=== PATIENT | female | born 1960 | race Caucasian/White ===

== ENCOUNTER 2016-08-30 06:21 | Inpatient (IN) ==
--- NOTE | 2016-08-29 16:13 | Discharge Summary ---
<Ann Weller - Last Filed: 08/29/16 16:12> Date of Encounter: 08/29/16 - Discharge Diagnosis (1) Rotator cuff tear arthropathy of right shoulder Priority: Primary Status: Acute (2) Hypothyroidism Priority: Secondary Status: Chronic Qualifiers: Hypothyroidism type: unspecified Qualified Code(s): E03.9 - Hypothyroidism , unspecified (3) Asthma Priority: Secondary Status: Chronic Qualifiers: Asthma severity: unspecified severity Asthma complication type: uncomplicated Qualified Code(s): J45.909 - Unspecified asthma, uncomplicated - Discharge Medications Home Medications: OxyCODONE Immed Rel [Roxicodone 5 MG] 5 - 10 mg PO Q6HR PRN #40 tablet 08/29/16 [Rx] Albuterol Sulfate [Albuterol Inhaler] 2 puff IH Q4HR PRN 08/30/16 [History] Docusate [Colace] 100 mg PO DAILY PRN 08/30/16 [History] Ezetimibe [Zetia] 10 mg PO DAILY 08/30/16 [History] Gabapentin [Neurontin] 400 mg PO QID 08/30/16 [History] Gluc/Donald-MSM#1/C/Daniel/Lawrence/Bor [Osteo Bi-Flex Caplet] 1 each PO DAILY 08/30/16 [ History] Ibuprofen [Motrin] 400 mg PO Q8HR PRN 08/30/16 [History] Levothyroxine [Synthroid] 175 mcg PO 0630 08/30/16 [History] Tramadol HCl [Ultram] 50 mg PO TID PRN 08/30/16 [History] guaiFENesin [Guaifenesin] 400 mg PO Q4H PRN 08/30/16 [History] Allergies/Adverse Reactions: Allergies Penicillins [PCN] Adverse Reaction (Verified 08/30/16 07:11) Rash Primary care physician: Camille Soto CNP - Patient Status Disposition: Home, Self-Care Condition: Good - Discharge Instructions Follow Up With: Ann Weller, BRISEIDA [Physician [employer]] - 09/07/16 9:15 am Camille Soto CNP [Primary Care Provider] - Additional Instructions: Discharge Instructions: Total Shoulder Please call [facility] ([phone]), your Primary Care Physician, or report to the Emergency Room if you have any of the following symptoms: Nausea, vomiting, fever greater that 101.5, swelling, chest pain, shortness of breath, increased pain/redness/drainage/odor for your incision site, numbness/ tingling, or any other concerning symptoms. ACTIVITY: Always keep your arm in the sling. Do not raise your arm away from your body. Do not use your arm to help with getting in or out of bed. No weight bearing permitted. Only perform those exercises given to you by your therapist. MEDICATIONS: Upon discharge resume your home medications. Take all the medications as prescribed. Take a stool softener if taking narcotic pain medications. Stool softeners are only effective if you drink enough fluids. Drink 6-8 glass of water or fluids a day, unless this is not allowed for another health problem. Despite using stool softeners, if you haven't had a bowel movement in 3 days, please switch to a gentle laxative. Gentle laxatives are sold over the counter. You should have a bowel movement within 24 hours, if not call the office. You will be discharged from the hospital with a prescription for pain medication. You are encouraged to decrease the use of narcotic pain medication as tolerated. Should you require a refill, please call the office. [facility] prescribes narcotic pain medication for only 4-6 weeks after surgery. If you require pain medication beyond this time period, you may be referred to your Primary Care Physician or to the Pain Clinic for further evaluation. Plan ahead for refills on pain medication as many narcotics either need to be picked up at the office or mailed. It is best to call 48-72 hours in advance of needing a prescription refill so you don't run out of medication. To help control the post-operative pain, you may take NSAIDs (Aleve,Advil, Motrin, Ibuprofen, Naprosyn) or Tylenol as prescribed on the bottle in addition to the pain medication. WOUND CARE: Leave the dressing on for 7-10 days. You may change the dressing if it becomes saturated greater than 50%. Do not get the dressing wet at anytime. Wash your hands with antibacterial soap, rinse and dry prior to any wound care. If you have joseph the visiting nurse or rehab facility can remove the stapes 10-14 days after surgery and place steri-strips across the wound. Leave the steri-strips in place until they fall off on their own. You may let water from the shower run on top of the steri-strips. If you do not have a visiting nurse or rehab facility, you will need to return to the office at 10-14 days for the joseph to be removed. If you have itching or redness around the dressing call the office. FOLLOW-UP: Please follow up with your surgeon in the orthopedic clinic, as scheduled - Hospital Course Hospital course: Ms. Rossi is a 56 year old female - Time Spent with Patient Total time spent providing and/or coordinating discharge services: <Raman Otoole - Last Filed: 08/31/16 12:53> Date of Encounter: 08/31/16 Time of Encounter: 12:52 - Discharge Diagnosis (1) Tobacco abuse Priority: Secondary Status: Chronic (2) Rotator cuff tear arthropathy of right shoulder Priority: Primary Status: Acute (3) Hypothyroidism Priority: Secondary Status: Chronic Qualifiers: Hypothyroidism type: unspecified Qualified Code(s): E03.9 - Hypothyroidism , unspecified (4) Asthma Priority: Secondary Status: Chronic Qualifiers: Asthma severity: unspecified severity Asthma complication type: uncomplicated Qualified Code(s): J45.909 - Unspecified asthma, uncomplicated Primary care physician: Camille Soto CNP - Patient Status Functional capacity at discharge: independent ambulation Overall status at discharge: patient is progressing back to baseline - Hospital Course Hospital course: Ms. Rossi is a 56 year old female The patient had an uneventful postoperative course. They received antibiotics and physical therapy and were discharged in stable condition. There will follow -up in the office in 2 weeks. - Time Spent with Patient Total time spent providing and/or coordinating discharge services:
--- NOTE | 2016-08-30 06:25 | History & Physical Report ---
Date of Encounter: 08/30/16 Time of Encounter: 06:25 24 Hour HP Update - Instructions Instructions: If the History and Physical is less than 30 days old and was completed prior to A.M. admission and or procedure and has NOT been updated on calendar day of procedure please complete this update prior to performing procedure. - Update Patient reports changes in Medical Condition: No Changes in examination, assessment, or condition: No Changes in Medication: No Preop tests/diagnostics Reviewed: Yes Surgery Remains Indicated: Yes Consent for Planned Operative Procedure(s) Verified: Yes - Pre-Operative Checklist Preoperative Checklist Indicated: No Prophylactic Antibiotic Ordered: Yes Is VTE Prophylaxis Indicated?: Yes
[2016-08-30] MEDS ORDERED: Clindamycin 900 MG/50 ML 900 MG/50 ML IV.SOLN IVPB ONE ×2 (06:42→06:57)
[2016-08-30] MEDS ORDERED: Ringers Solution, Lactated 1,000 ML IVC SCH ×2 (06:45→09:50)
[2016-08-30] MEDS ORDERED: Albuterol 2.5 MG/3 ML NEBULIZER IH ONE (06:57)
--- NOTE | 2016-08-30 07:04 | Anesthesia Evaluation PreOp ---
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 Other Medical History: Thyroid (Hypothyroid) Anesthesia History: Past Anesthesia (hysteroscopy, D&C, Right shoulder) : No Alcohol Use: none Drug use: none Medications and Allergies OxyCODONE Immed Rel [Roxicodone 5 MG] 5 - 10 mg PO Q6HR PRN #40 tablet 08/29/16 [Rx] Allergies Penicillins [PCN] Adverse Reaction (Verified 08/30/16 07:11) Rash - Meds/Allergy Pre-op Review Medications Reviewed: Yes Allergies Reviewed: Yes Beta Blockers on Current Med List: No Anesthesia Results - Labs Hg 9.4 Plt 376 INR 1.07 BUN 14 Cr 0.7 - Imaging EKG: image reviewed (SR) Anesthesia Exam O2 Sat Height 1.63 m Height 1.63 m Weight 71.214 kg Weight 71.214 kg O2 Sat by Pulse Oximetry 96 O2 Sat by Pulse Oximetry 96 Vital Signs Temp Pulse Resp BP Pulse Ox 98.3 F 76 18 131/84 96 08/30/16 06:58 08/30/16 06:58 08/30/16 06:58 08/30/16 06:58 08/30/16 06:58 Height: 5'4'' Weight: 157# NPO (# of Hours): > 8 hrs Pain Scale: 0 Pain Scale Used: Numeric (1 - 10) - HEENT Pupil (Motor): Pupils equal, EOMI Mallampati: II Teeth: Edentulous Denture Type: Upper: Complete, Lower: Complete Oral Opening: Greater than 3 - 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
[2016-08-30] MEDS ORDERED: Lidocaine -MPF 1% 2 ML VIAL ONE (07:10)
[2016-08-30] MEDS ORDERED: *HR* Midazolam HCl 2 MG/2 ML VIAL ONE (07:23)
[2016-08-30] MEDS ORDERED: *HR* Propofol 200 MG/20 ML VIAL IVP ONE (07:23)
[2016-08-30] MEDS ORDERED: Dexamethasone 4 MG/ML VIAL ONE (07:24)
[2016-08-30] MEDS ORDERED: Ondansetron 4 MG/2 ML VIAL ONE (07:24)
[2016-08-30] MEDS ORDERED: Bupivacaine-MPF 0.25% 10 ML VIAL ONE (07:25)
[2016-08-30] MEDS ORDERED: Lidocaine -MPF 2% 2 ML VIAL ONE (07:26)
[2016-08-30] MEDS ORDERED: ROPIVACAINE HCL/PF 0.5% 30 ML VIAL ONE (07:27)
[2016-08-30] MEDS ORDERED: Lidocaine/EPI 1:200k 2% PF 10 ML VIAL ONE (07:33)
[2016-08-30] MEDS ORDERED: Ondansetron 4 MG/2 ML VIAL IVP ONE (08:04)
[2016-08-30] MEDS ORDERED: *HR* Labetalol 100 MG/20 ML MDV IVP PRN (08:04)
[2016-08-30] MEDS ORDERED: *HR* HYDROmorphone (PF) 1 MG/ML SYRINGE IVP PRN ×2 (08:04→09:50)
[2016-08-30] MEDS ORDERED: *HR* Phenylephrine 10 MG/ML VIAL ONE (08:08)
--- NOTE | 2016-08-30 08:11 | Anesthesia Procedures ---
Date of Encounter: 08/30/16 Time of Encounter: 07:38 Procedures: Anesthesia - Nerve Block Procedure Date: 08/30/16 Time: 07:38 Allergies/Adv Reactions: pcn Surgical Procedure: right Checklist: Correct Patient Identifier, Correct procedure, History checked Correct side: Right Blood Thinner: No Monitor Applied: EKG, BP, Pulse Oximetry Supplemental Oxygen via Nasal Cannula (L/min): 2 Sedation: Versed (mg): 2 Indication: Post Op Analgesia Block Type: Interscalene, Supraclavicular (and SCP ) Catheter placed: No Sterile Technique: Yes Ultrasound used: Yes Anatomy identified: Yes Visual spread of Local: Yes Neuro Stimulation: No Blood on Needle Aspiration: No Smooth Injection of Local: Yes Pain with Injection of Local: No Prep: Chlorhexadine Needle: 22 x 50 mm Stimuplex Local: Ropivacaine (30ml 0.5%), Other (20ml 0.25% bup with 5ml lido with 1:200k epi) Volume (cc): 55 Number of Attempts: 1 Complications: None/effective block Vitals: vss, 10ml for IS, 30 for supraclavical, 7 for T2 block, 8 for SCP. block per request of surgeon
[2016-08-30] MEDS ORDERED: EPHEDrine 50 MG/ML VIAL ONE (08:27)
--- NOTE | 2016-08-30 08:39 | Orthopedic Operative Note ---
Date of procedure: 08/30/16 Pre-op diagnosis: Right shoulder cuff tear arthropathy Post-op diagnosis: same Procedure: Procedure: Right Total Shoulder Replacment Reverse, biceps tenodesis Estimated blood loss: 100 cc Hardware: Metal and polyethylene replacement: Arthrex small glenoid baseplate, 2 4.5 screws. 1 6.5 screw, 36+4 glenosphere, 6 humeral stem, poly insert 3, 9 metal Exam Under anesthesia: No motion no instability Procedural Notes: Irreparable tear supraspinatus tendon. Operative procedure: The patient was brought to the operating room and placed on the operating room table. After general anesthesia was administered the operative shoulder was examined. Findings were noted. The patient was placed in the modified beachchair position. All pressure points were padded appropriately. And the head was stabilized in the neutral position. The operative extremity was prepped and draped in the sterile surgical fashion. The patient received IV antibiotics prior to skin incision. A standard deltopectoral approach was made to the operative shoulder. Incision was made to the skin and subcutaneous tissue,hemo stasis was obtained with Bovie cautery. Using careful blunt dissection the cephalic vein was identified and mobilized medially. The deltopectoral interval was developed and the clavipectoral fascia was incised. The subscap was released off the lesser tuberosity and tagged with #2 FiberWire suture, it was irreparable. The humerus was dislocated patient noted to have irreparable tear supraspinatus tendon, and the humeral cut was made along the anatomic neck. Anterior and posterior Bankart retractors were placed to expose the glenoid. The glenoid guide was seated and the centering hole was made. It was reamed with the appropriate reamer. The small Mukesh plate was seated and secured with (2) 4.5 screws and one 6.5 screw. The baseplate was irrigated and dried and the 36+4 Glenosphere was seated and secured with the Fall taper. The Fall taper was tested and found to be secure the humerus was redislocated and prepared with the diaphyseal reamers, followed by a broaching process up to the appropriate size X in the patient's anatomic version. The metaphyseal reamer was then utilized. Trial reduction found the shoulder to be relocatable. Trial components were removed and drill holes were placed in the lesser tuberosity. They were filled with #5 FiberWire suture incorporating the biceps tendon. These sutures were used for a biceps tenodesis. The appropriate 6 stem was impacted in place in the patient's anatomic version. Trial reduction found the shoulder to be relocatable and stable with the appropriate 9 metal and 3 Sarah Trial component was removed and the real implants was seated and secured the shoulder was reduced. The shoulder had excellent motion and excellent stability and no evidence of dislocation. The deep tissue was irrigated with pulse irrigation. The biceps was tenodesed. The deltopectoral interval was closed with a running #1 PDS suture, subcutaneous tissue was irrigated and closed with 0 PDS suture, the skin was closed with Dermabond. The patient was placed in a sterile dressing, abduction brace and extubated. The patient was then transferred to the recovery room in stable condition. Anesthesia: SINDY Surgeon: Raman Otoole Pathology Laboratory Aide: Ann Weller Condition: stable Disposition: PACU
--- NOTE | 2016-08-30 09:18 | Anesthesia Evaluation Post Op ---
Date of Encounter: 08/30/16 Time of Encounter: 09:15 - Vital Signs Vital Signs: O2 Sat Height 1.63 m Height 1.63 m Weight 71.214 kg Weight 71.214 kg O2 Sat by Pulse Oximetry 98 O2 Sat by Pulse Oximetry 97 O2 Sat by Pulse Oximetry 95 O2 Sat by Pulse Oximetry 98 O2 Sat by Pulse Oximetry 96 O2 Sat by Pulse Oximetry 96 Vital Signs Temp Pulse Resp BP Pulse Ox 98.3 F 76 18 131/84 96 08/30/16 06:58 08/30/16 06:58 08/30/16 06:58 08/30/16 06:58 08/30/16 06:58 - Lungs Lungs: Clear Ascult./Percussion - Airway Airway: Non-obstructed - Cardiovascular Regular Rate - Mental Status Mental Status: Alert & Oriented, Answers Appropriately - Pain Pain Scale: 0 Pain Scale used: Numeric (1 - 10) - Nausea Vomiting Nausea Vomiting: Not Present - Hydration Hydration: Ice chips, Has not voided - Discharge PostOp Status: Transfer Patient to floor
[2016-08-30 09:33] LABS: Hematocrit 29.2 % (35.3-44.9); Hemoglobin 8.3 g/dL (11.5-15.4)
[2016-08-30] MEDS ORDERED: (Gluc/Chon-Msm#1/C/Mang/Bos/Bor [Osteo Bi-Flex Caplet PO SCH (09:50)
[2016-08-30] MEDS ORDERED: Gabapentin 400 MG CAPSULE PO SCH (09:50)
[2016-08-30] MEDS ORDERED: *HR* OxyCODONE Immed Rel 5 MG TABLET PO PRN ×2 (09:50)
[2016-08-30] MEDS ORDERED: GuaiFENesin Liq 200 MG/10 ML UDC PO PRN (09:50)
[2016-08-30] MEDS ORDERED: Naloxone 0.4 MG/ML INJ IVP PRN (09:50)
[2016-08-30] MEDS ORDERED: (Ezetimibe [Zetia] 10 MG) PO SCH (09:50)
[2016-08-30] MEDS ORDERED: Ondansetron 4 MG/2 ML VIAL IVP PRN (09:50)
[2016-08-30] MEDS ORDERED: MOM Conc 10 ML UD.LIQ PO PRN (09:50)
[2016-08-30] MEDS ORDERED: ceFAZolin 2,000 MG in D5% in Water 100 ML IVPB SCH (09:50)
[2016-08-30] MEDS ORDERED: Temazepam 15 MG CAPSULE PO PRN (09:50)
[2016-08-30] MEDS ORDERED: Sennosides 8.6 MG TABLET PO PRN (09:50)
[2016-08-30] MEDS ORDERED: *HR* Enoxaparin 30 MG/0.3 ML SYRINGE SQ ONE (12:00)
[2016-08-30] MEDS ORDERED: Clindamycin 900 MG/50 ML 900 MG/50 ML IV.SOLN IVPB SCH ×2 (12:00→15:00)
[2016-08-30 12:32] VITALS: BP 116/76
[2016-08-30] MEDS ORDERED: *HR* Enoxaparin 30 MG/0.3 ML SYRINGE SQ SCH ×2 (18:00)
== END 2016-08-30 15:05 | disposition home or self-care (01) | DRG 483 ==
LOC: SAMDAY 06:21 → 3NENU 06:21
PROVIDERS: ADMIT Orthopaedic Surgery; ATTEND Orthopaedic Surgery